=== PATIENT | female | born 1955 | race Caucasian/White ===

== ENCOUNTER 2025-09-29 08:02 | Outpatient (CLI) | payer OTHER | END 2025-09-29 08:03 | disposition home or self-care (01) | LOC: BICCT 08:02 | PROVIDERS: ATTEND Internal Medicine | DX: Z13.6 Encounter for screening for cardiovascular disorders (principal); E78.00 Pure hypercholesterolemia, unspecified; I70.90 Unspecified atherosclerosis | CPT/HCPCS: 75571 ==